=== PATIENT | female | born 1965 | race Caucasian/White ===

== ENCOUNTER 2021-02-26 15:04 | Inpatient (IN) | payer OTHER ==
[~2021-02-26] VITALS: Ht 177.8 cm; Wt 133.0 kg
[2021-02-26] MEDS ORDERED: iohexol 350MG/ML 100ml bottle IV ONE (16:49)
--- NOTE | 2021-02-26 16:49 | NUR ---
pt to room, assumed care.
--- NOTE | 2021-02-26 16:58 | NUR ---
pt to CT
[2021-02-26 17:32] LABS: BASOPHILS % (AUTO) 0.6 % (0-1); EOSINOPHILS % (AUTO) 0.5 % (0-6); HEMATOCRIT 41.2 % (35.0-45.0); HEMOGLOBIN 13.9 g/dl (12.0-16.0); LYMPHOCYTES # (AUTO) 1.6 X10'3 (1.1-4.8); LYMPHOCYTES % (AUTO) 23.8 % (21-51); MEAN CORPUSCULAR HGB CONC 33.6 g/dL (33.0-36.5); MEAN CORPUSCULAR VOLUME 95.2 FL (78-98); MEAN PLATELET VOLUME 9.4 FL (7.4-10.4); MONOCYTES # (AUTO) 0.3 X10'3 (0-0.9); MONOCYTES % (AUTO) 5.2 % (2-12); NEUTROPHILS # (AUTO) 4.7 X10'3 (1.8-7.7); NEUTROPHILS % (AUTO) 69.9 % (42-75); PLATELET COUNT 298 X10'3 (140-440); RED BLOOD COUNT 4.33 X10'6 (4.20-5.60); RED CELL DISTRIBUTION WIDTH 13.5 % (11.5-14.5); WHITE BLOOD COUNT 6.7 X10'3 (4.5-11.0)
[2021-02-26 17:51] LABS: ALANINE AMINOTRANSFERASE 26 U/L (12-78); ALBUMIN 3.9 G/DL (3.4-5.0); ALBUMIN/GLOBULIN RATIO 1.1 (1.1-1.5); ALKALINE PHOSPHATASE 108 IU/L (46-116); ANION GAP 11 (8-16); ASPARTATE AMINO TRANSFERASE 13 U/L (10-37); BILIRUBIN,TOTAL 0.4 MG/DL (0.1-1.0); BLOOD UREA NITROGEN 10 MG/DL (7-18); BUN/CREATININE RATIO 15.4 (6.6-38.0); CHLORIDE 101 MMOL/L (99-107); CREATININE 0.65 MG/DL (0.40-0.90); GLUCOSE 99 MG/DL (70-104); POTASSIUM 3.9 MMOL/L (3.5-5.1); SODIUM 139 MMOL/L (135-145); TOTAL CARBON DIOXIDE 27.3 MMOL/L (24-32); TOTAL PROTEIN 7.5 G/DL (6.4-8.2); eGFR > 90 ML/MIN
[2021-02-26] MEDS ORDERED: aspirin 325mg tablet PO ONE (17:55)
[2021-02-26] MEDS ORDERED: bisacodyl 10mg suppository rectal RC PRN (18:00)
[2021-02-26] MEDS ORDERED: magnesium 4gm in 100ml NS 100 ML IV PRN (18:00)
[2021-02-26] MEDS ORDERED: ondansetron/PF 4mg/2ml inj IV PRN (18:00)
[2021-02-26] MEDS ORDERED: potassium Cl 40MEQ/1/2NS 520ml 520 ML IV PRN ×2 (18:00)
[2021-02-26] MEDS ORDERED: acetaminophen 325mg tablet PO PRN ×2 (18:00)
[2021-02-26] MEDS ORDERED: HYDROcodone/acetaminophen 5mg/325mg tablet PO PRN (18:00)
[2021-02-26] MEDS ORDERED: magnesium Cl slow-release 64mg tablet PO PRN (18:00)
[2021-02-26] MEDS ORDERED: magnesium 2GM in 50ml NS 50 ML IV PRN (18:00)
[2021-02-26] MEDS ORDERED: potassium Cl 20 mEq SR tablet PO PRN ×2 (18:00)
[2021-02-26] MEDS ORDERED: mag hydrox/Alum hydrox/simeth 30ml oral suspension PO PRN (18:00)
[2021-02-26] MEDS ORDERED: magnesium hydroxide 30ml (MOM) UD suspension PO PRN (18:00)
[2021-02-26] MEDS ORDERED: DICY20TA11 PO (18:03)
[2021-02-26] MEDS ORDERED: POTA10TA19 PO (18:03)
[2021-02-26] MEDS ORDERED: FURO40TA4 PO ×2 (18:03→19:05)
[2021-02-26] MEDS ORDERED: HYDR-3965 PO (18:03)
[2021-02-26 18:12] LABS: ETHANOL < 0.010 GM/DL (0.0-0.010)
[2021-02-26] MEDS: HYDROcodone/acetaminophen 10/325mg tab PO PRN (18:16)
[2021-02-26] MEDS ORDERED: HYDROmorphone 1 mg/ml syringe IV PRN (18:40)
[2021-02-26] MEDS ORDERED: pantoprazole 40mg Tablet.DR PO SCH (18:40)
[2021-02-26] MEDS ORDERED: ketorolac tromethamine 15mg/ml inj. IV PRN (18:40)
[2021-02-26] MEDS ORDERED: ketorolac trometh. 30mg/ml inj. IV ONE (18:40)
[2021-02-26] MEDS ORDERED: methylPREDNISolone sod succ 125mg/2ml vial IV ONE (18:40)
[2021-02-26] MEDS ORDERED: diazepam 5mg tablet PO ONE (18:40)
[2021-02-26] MEDS ORDERED: hydrALAZINE 20mg/ml inj. IV PRN (18:50)
[2021-02-26] MEDS ORDERED: DICY20TA17 PO (19:05)
[2021-02-26] MEDS ORDERED: POTA8CAP20 PO (19:05)
[2021-02-26] MEDS ORDERED: HYDR-3972 PO (19:05)
[2021-02-26] MEDS ORDERED: ALBU18HF2 PO (19:05)
[2021-02-26] MEDS: methylPREDNISolone sod succ 125mg/2ml vial IV SCH (19:26)
[2021-02-26] MEDS: pantoprazole 40mg Tablet.DR PO SCH (19:27)
[2021-02-26] MEDS: K and/or MAG REPLACEMENT MC SCH (20:00)
[2021-02-26] MEDS ORDERED: temazepam 15mg capsule PO PRN (21:00)
--- NOTE | 2021-02-26 21:22 | NUR ---
pt resting in bed comfortably awaiting bed assignment.
--- NOTE | 2021-02-26 22:44 | NUR ---
pt asking for sleep aid. resting in bed.
--- NOTE | 2021-02-26 22:53 | NUR ---
pt asking for food, otonielo given.
--- NOTE | 2021-02-27 00:31 | NUR ---
pt appears asleep, even chest rise and fall.
[2021-02-27] MEDS: methylPREDNISolone sod succ 125mg/2ml vial IV SCH ×3 (02:00→13:38)
--- NOTE | 2021-02-27 03:16 | NUR ---
report given to RN, care transferred
--- NOTE | 2021-02-27 04:27 | NUR ---
PT GIVEN A HOSPITAL BED FROM UPSTAIRS, GIVEN EXTRA BLANKET AND TUCKED IN, HOOKED BACK UP TO VITALS AND ANSWERED QUESTIONS.
--- NOTE | 2021-02-27 06:47 | NUR ---
Patient in room ED 3, WILL GO TO ROOM 4011A. I have received report from CARLOTTA BUSCH IN ED and had the opportunity to ask questions and assume patient care.
[2021-02-27 07:10] VITALS: BP 118/65
[2021-02-27 07:52] LABS: BASOPHILS % (AUTO) 0.1 % (0-1); EOSINOPHILS % (AUTO) 0 % (0-6); HEMATOCRIT 39.7 % (35.0-45.0); HEMOGLOBIN 13.5 g/dl (12.0-16.0); LYMPHOCYTES # (AUTO) 0.9 X10'3 (1.1-4.8); LYMPHOCYTES % (AUTO) 13.3 % (21-51); MEAN CORPUSCULAR HEMOGLOBIN 31.6 PG (27.0-31.0); MEAN CORPUSCULAR HGB CONC 33.9 g/dL (33.0-36.5); MEAN CORPUSCULAR VOLUME 93.3 FL (78-98); MEAN PLATELET VOLUME 9.2 FL (7.4-10.4); MONOCYTES % (AUTO) 0.6 % (2-12); NEUTROPHILS # (AUTO) 6.1 X10'3 (1.8-7.7); PLATELET COUNT 295 X10'3 (140-440); RED BLOOD COUNT 4.26 X10'6 (4.20-5.60); RED CELL DISTRIBUTION WIDTH 13.1 % (11.5-14.5); WHITE BLOOD COUNT 7.1 X10'3 (4.5-11.0)
[2021-02-27] MEDS ORDERED: multivitamins, therapeutics tablet PO SCH (08:00)
[2021-02-27] MEDS ORDERED: folic acid/vitamin B complex w/vitamin C 0.8mg tablet PO SCH (08:00)
[2021-02-27] MEDS ORDERED: aspirin 81mg tablet.DR PO SCH (08:00)
[2021-02-27] MEDS: K and/or MAG REPLACEMENT MC SCH (08:00)
[2021-02-27] MEDS: pantoprazole 40mg Tablet.DR PO SCH (08:20)
[2021-02-27] MEDS: HYDROcodone/acetaminophen 10/325mg tab PO PRN ×2 (08:26→13:40)
[2021-02-27 08:29] LABS: ALANINE AMINOTRANSFERASE 20 U/L (12-78); ALBUMIN 3.6 G/DL (3.4-5.0); ALBUMIN/GLOBULIN RATIO 1.1 (1.1-1.5); ALKALINE PHOSPHATASE 100 IU/L (46-116); ANION GAP 12 (8-16); ASPARTATE AMINO TRANSFERASE 13 U/L (10-37); BILIRUBIN,TOTAL 0.3 MG/DL (0.1-1.0); BLOOD UREA NITROGEN 14 MG/DL (7-18); BUN/CREATININE RATIO 23.3 (6.6-38.0); CALCIUM 8.8 MG/DL (8.5-10.1); CHLORIDE 103 MMOL/L (99-107); CHOL/HDL RATIO 4.3 (0.00-4.99); CHOLESTEROL 252 MG/DL (0-200); GLUCOSE 130 MG/DL (70-104); HDL CHOLESTEROL 58 MG/DL (35-60); LDL CHOLESTEROL 160 MG/DL (50-100); MAGNESIUM 2.2 MG/DL (1.5-2.4); POTASSIUM 3.9 MMOL/L (3.5-5.1); SODIUM 139 MMOL/L (135-145); TOTAL CARBON DIOXIDE 23.7 MMOL/L (24-32); TRIGLYCERIDES 150 MG/DL (20-135); eGFR > 90 ML/MIN
[2021-02-27 10:00] VITALS: BP 138/63
--- NOTE | 2021-02-27 14:45 | NUR ---
Malnutrition Consult: Pt admit DX possible CVA, HTN, and headaches w/ slurred speech per EMR. Advanced to heart healthy diet per MD/VITAMIN MANAGER recs PO ~50% avg first 2 meals. Pt has normal strength, no edema/wounds, and appears WD/WN per ER note. Hx gastric bypass per EMR so likley to wt loss correlated but at this time pt lacks minimum two malnutrition criteria at this time. Addendum: 02/27/21 at [address] Amended: Links added.
[2021-02-27] MEDS ORDERED: PANT40TA54 PO (16:01)
[2021-02-27] MEDS ORDERED: CYCL-1 PO (16:01)
[2021-02-27] MEDS ORDERED: MULT-25 PO (16:01)
[2021-02-27] MEDS ORDERED: PRED20TA PO (16:01)
[2021-02-27] MEDS ORDERED: FOLI0.8T22 PO (16:01)
--- NOTE | 2021-02-27 17:05 | NUR ---
DC INSTRUCTIONS GIVEN, QUESTIONS ANSWERED. IV REMOVED CANULA INTACT, NO COMPLICATIONS. PT DRESSED SELF. WHEELED DOWN TO PRIVATE VEHICLE IN STABLE CONDITION.
[2021-02-28] MEDS ORDERED: predniSONE 20 mg tablet PO SCH (08:00)
[2021-02-28] MEDS ORDERED: GADOTERATE MEGLUMINE 7.5 MMOL/15 ML VIAL IV ONE (16:57)
== END 2021-02-27 17:05 | disposition home or self-care (01) | DRG 556 ==
LOC: ER 15:06 → ED HOLD 18:00 → ORTHO 4S 02-27 07:10
PROVIDERS: ADMIT Family Medicine; ATTEND Family Medicine
PROC: B3251ZZ Computerized Tomography (CT Scan) of Bilateral Common Carotid Arteries using Low Osmolar Contrast (ICD-10-PCS; principal; 2021-02-26)
PROC: B32G1ZZ Computerized Tomography (CT Scan) of Bilateral Vertebral Arteries using Low Osmolar Contrast (ICD-10-PCS; 2021-02-26)
PROC: B32R1ZZ Computerized Tomography (CT Scan) of Intracranial Arteries using Low Osmolar Contrast (ICD-10-PCS; 2021-02-26)
PROC: B3281ZZ Computerized Tomography (CT Scan) of Bilateral Internal Carotid Arteries using Low Osmolar Contrast (ICD-10-PCS; 2021-02-26)
DX: M62.838 Other muscle spasm (principal); G45.9 Transient cerebral ischemic attack, unspecified; E78.5 Hyperlipidemia, unspecified; I10 Essential (primary) hypertension; R47.81 Slurred speech; M47.816 Spondylosis without myelopathy or radiculopathy, lumbar region; M79.605 Pain in left leg; M48.02 Spinal stenosis, cervical region; F17.210 Nicotine dependence, cigarettes, uncomplicated; M51.26 Other intervertebral disc displacement, lumbar region; M54.31 Sciatica, right side; Z85.3 Personal history of malignant neoplasm of breast; Z90.710 Acquired absence of both cervix and uterus; Z98.84 Bariatric surgery status; Z91.018 Allergy to other foods; Z90.49 Acquired absence of other specified parts of digestive tract
CPT/HCPCS: 36415; 70450; 70496; 70498; 70553; 71045; 72141; 72148; 80053; 80061; 80320; 83735; 84443; 85025; 85651; 86140; 86885; 86900; 86901; 87081; 92508; 92616; 93005; 93306; 96374; 99285; A9575; G0378; J1885; J2930; Q9967